=== PATIENT | female | born 1945 ===

== ENCOUNTER 2018-03-10 12:26 | Emergency (ER) | payer OTHER ==
[~2018-03-10] VITALS: Ht 172.7 cm; Wt 79.4 kg
[2018-03-10] MEDS ORDERED: DIOVAN320 MG PO (12:53)
[2018-03-10] MEDS ORDERED: AZOR 10-40 MG1 EACH PO (12:53)
== END 2018-03-10 20:13 | disposition home or self-care (01) ==
LOC: ER 12:26
DX: S82.62XA Displaced fracture of lateral malleolus of left fibula, initial encounter for closed fracture (principal); W18.39XA Other fall on same level, initial encounter; Y93.89 Activity, other specified; Y92.098 Other place in other non-institutional residence as the place of occurrence of the external cause; Y99.8 Other external cause status